=== PATIENT | female | born 1955 | race African-American/Black ===

== ENCOUNTER 2018-06-17 13:27 | Emergency (ER) | payer SELFPAY ==
[~2018-06-17] VITALS: Ht 170.2 cm; Wt 89.0 kg
[2018-06-17 13:40] VITALS: BP 147/96
== END 2018-06-17 15:40 | disposition left against medical advice (07) ==
LOC: ER 14:05
DX: Z53.21 Procedure and treatment not carried out due to patient leaving prior to being seen by health care provider (principal)
CPT/HCPCS: 82962